=== PATIENT | female | born 1995 | race Caucasian/White ===

== ENCOUNTER 2023-12-17 10:28 | Emergency (ER) | payer OTHER ==
[~2023-12-17] VITALS: Ht 160 cm; Wt 104.3 kg
[~2023-12-17 10:28] MED LIST: ALBUTEROL INH
[2023-12-17 10:38] VITALS: BP 133/83; PULSE 67; RESP 16; TEMP 97.7; O2SAT 94
[2023-12-17] MEDS: HYDROcodone/APAP 5/325 MG 1 TAB TAB PO ONE (11:11)
[2023-12-17] MEDS: KETOROLAC 30 MG/ML VIAL IM ONE (11:12)
[2023-12-17] MEDS: ONDANSETRON 4 MG ODT PO ONE (11:14)
[2023-12-17] MEDS ORDERED: LID5T TP (11:49)
[2023-12-17] MEDS ORDERED: METH-1681 PO (11:49)
[2023-12-17] MEDS ORDERED: IBUP-2213 PO (11:49)
== END 2023-12-17 11:55 | disposition home or self-care (01) ==
LOC: MED 10:28
DX: S39.012A Strain of muscle, fascia and tendon of lower back, initial encounter (principal); X58.XXXA Exposure to other specified factors, initial encounter; Y92.89 Other specified places as the place of occurrence of the external cause; Y93.89 Activity, other specified; Y99.0 Civilian activity done for income or pay
CPT/HCPCS: 81025; 96372; 99283; J1885; Q0162